=== PATIENT | female | born 1955 | race Two or more races ===

== ENCOUNTER → 2020-07-22 | Outpatient (CLI) | payer OTHER | END | disposition home or self-care (01) | LOC: MRI 07-17 08:15 | DX: M16.11 Unilateral primary osteoarthritis, right hip (principal) | CPT/HCPCS: 73721 ==

== ENCOUNTER 2021-01-12 11:13 | Outpatient (CLI) | payer OTHER | END 2021-01-12 11:15 | disposition home or self-care (01) | LOC: PPH VACUNA 11:13 | PROVIDERS: ATTEND Emergency Medicine Pediatric Emergency Medicine | DX: Z23 Encounter for immunization (principal) ==

== ENCOUNTER 2021-02-02 17:03 | Outpatient (CLI) | payer OTHER | END 2021-02-02 17:04 | disposition home or self-care (01) | LOC: PPH VACUNA 17:03 | PROVIDERS: ATTEND Emergency Medicine Pediatric Emergency Medicine | DX: Z23 Encounter for immunization (principal) ==

== ENCOUNTER 2023-03-02 07:45 | Inpatient (IN) | payer OTHER ==
[~2023-03-02] VITALS: Ht 162.6 cm; Wt 46.7 kg
[2023-03-02] MEDS ORDERED: RELAFEN DS1000 MG PO (09:32)
[2023-03-08] MEDS ORDERED: NABUMETONE750 MG (14:22)
[2023-03-11] MEDS ORDERED: PERCOCET 5-3251 EACH PO (07:54)
[2023-03-11] MEDS ORDERED: ELIQUIS2.5 MG PO (07:54)
[2023-03-11] MEDS ORDERED: DUI500 PO (07:54)
== END 2023-03-11 17:22 | DRG 470 ==
LOC: SURG 03-08 07:00 → O/R 03-08 08:40 → SURG 03-08 08:40
PROVIDERS: ADMIT Orthopaedic Surgery; ATTEND Orthopaedic Surgery
PROC: 0SR90J9 Replacement of Right Hip Joint with Synthetic Substitute, Cemented, Open Approach (ICD-10-PCS; principal; 2023-03-08 07:00)
DX: M16.11 Unilateral primary osteoarthritis, right hip (principal); D62 Acute posthemorrhagic anemia